=== PATIENT | female | born 1970 | race Caucasian/White ===

== ENCOUNTER 2022-10-12 08:13 | Outpatient (CLI) | payer OTHER | END 2022-10-12 08:14 | disposition home or self-care (01) | LOC: TBSIIMAG 08:13 | PROVIDERS: ATTEND Surgery | DX: M50.122 Cervical disc disorder at C5-C6 level with radiculopathy (principal); M50.022 Cervical disc disorder at C5-C6 level with myelopathy | CPT/HCPCS: 72141 ==

== ENCOUNTER 2022-12-08 05:44 | Observation (INO) | payer OTHER ==
[2022-12-08] MEDS ORDERED: Thrombin 5000 UNITS/5 ML VIAL ONE (06:14)
[2022-12-08] MEDS ORDERED: Fentanyl 250 MCG/5 ML VIAL ONE ×2 (06:44→10:21)
[2022-12-08] MEDS ORDERED: Sodium Chloride 0.9% 100 ML ONE (06:48)
[2022-12-08] MEDS ORDERED: CEFAZOLIN 2 GM VIAL ONE (06:48)
[2022-12-08] MEDS ORDERED: Midazolam HCl 2 mg/2 ml Vial ONE ×2 (06:59→11:19)
[2022-12-08] MEDS ORDERED: Ondansetron PF 4 MG/2 ML Vial ONE (07:07)
[2022-12-08] MEDS ORDERED: Dexamethasone 20 MG/5 ML VIAL ONE (07:07)
[2022-12-08] MEDS ORDERED: PROPOFOL 200 MG/20 ML VIAL ONE (07:07)
[2022-12-08] MEDS ORDERED: NEOSTIGMINE 3 MG/3 ML SYR 3 MG/3 ML SYRINGE ONE (07:07)
[2022-12-08] MEDS ORDERED: Rocuronium Bromide 10 MG/ML (10ML VIAL) ONE (07:07)
[2022-12-08] MEDS ORDERED: Lidocaine 1% PF 5 ML VIAL ONE (07:07)
[2022-12-08] MEDS ORDERED: Glycopyrrolate 0.2 MG/ML 5 ML SYRINGE ONE (07:07)
[2022-12-08] MEDS ORDERED: ePHEDrine 50 MG/ML VIAL ONE (07:07)
[2022-12-08] MEDS ORDERED: PHENYLEPHRINE-NS 100 MCG/ML 10 ML SYRINGE ONE (07:07)
[2022-12-08 07:24] LABS: SARS-CoV-2 NAA Rapid Test Not Detected (NotDetected)
[2022-12-08] MEDS ORDERED: diphenhydrAMINE 25 MG CAP PO PRN (09:05)
[2022-12-08] MEDS ORDERED: Ondansetron PF 4 MG/2 ML Vial IVP PRN (09:05)
[2022-12-08] MEDS ORDERED: traMADol HCl 50 MG TAB PO PRN ×2 (09:05)
[2022-12-08] MEDS ORDERED: tiZANidine HCl 4 MG TAB PO PRN (09:09)
[2022-12-08] MEDS ORDERED: HYDROmorphone 0.5 MG/0.5 ML SYRINGE ONE ×4 (09:10→09:48)
[2022-12-08] MEDS ORDERED: HYDROcodone/Acetaminophen 7.5/325 mg Tablet PO PRN (09:12)
[2022-12-08] MEDS ORDERED: Promethazine HCl 25 MG/ML VIAL IM PRN (09:18)
[2022-12-08] MEDS ORDERED: Ondansetron HCl/PF 4 MG/2 ML Vial IVP PRN (09:18)
[2022-12-08] MEDS ORDERED: Labetalol HCl 100 MG/20 ML VIAL SLOW IVP PRN (09:18)
[2022-12-08] MEDS ORDERED: HYDROmorphone 2 MG/ML VIAL SLOW IVP PRN (09:18)
[2022-12-08] MEDS ORDERED: Labetalol HCl 100 MG/20 ML VIAL ONE (09:45)
[2022-12-08] MEDS ORDERED: Bupivacaine PF 0.5% 30 ML VIAL ONE (11:19)
[2022-12-08] MEDS ORDERED: Fentanyl 100 MCG/2 ML VIAL ONE (11:19)
[2022-12-08] MEDS ORDERED: Promethazine HCl 25 MG/ML VIAL ONE (12:18)
[2022-12-08] MEDS: Sodium Chloride 0.9% 1,000 ML IV SCH ×2 (12:43→21:10)
[2022-12-08 12:45] VITALS: BMI 21.2
[2022-12-08] MEDS: Morphine 2 MG/ML VIAL SLOW IVP PRN ×5 (13:21→22:09)
[2022-12-08] MEDS: CEFAZOLIN 2 GM in Sodium Chloride 0.9% 100 ML IVPB SCH ×2 (13:21→19:58)
[2022-12-08] MEDS: Gabapentin 100 MG CAP PO PRN ×2 (13:22→19:57)
[2022-12-08] MEDS ORDERED: Diazepam 5 MG TAB PO PRN (16:20)
[2022-12-09] MEDS: Morphine 2 MG/ML VIAL SLOW IVP PRN (00:15)
[2022-12-09] MEDS: Ketorolac Tromethamine 30 MG/ML VIAL IVP PRN ×2 (03:23→09:27)
[2022-12-09] MEDS: CEFAZOLIN 2 GM in Sodium Chloride 0.9% 100 ML IVPB SCH (05:54)
[2022-12-09 12:05] VITALS: BP 165/76; TEMP 98.1
[2022-12-09] MEDS: Sodium Chloride 0.9% 1,000 ML IV SCH (14:10)
== END 2022-12-09 14:16 | disposition home or self-care (01) ==
LOC: SDC 05:44 → SURG B 09:10
PROVIDERS: ADMIT Surgery; ATTEND Surgery
PROC: 0RG10A0 Fusion of Cervical Vertebral Joint with Interbody Fusion Device, Anterior Approach, Anterior Column, Open Approach (ICD-10-PCS; principal; 2022-12-08)
DX: M50.123 Cervical disc disorder at C6-C7 level with radiculopathy (principal); Z88.6 Allergy status to analgesic agent; Z20.822 Contact with and (suspected) exposure to COVID-19
CPT/HCPCS: 96365; 96366; 96375; 96376; C1713; G0378; J1100; J1170; J1885; J2250; J2272; J2405; J2550; J2704; J3010; J3490; S0020; U0002

== ENCOUNTER 2023-03-06 14:10 | Outpatient (CLI) | payer OTHER ==
[2022-12-05 12:04] LABS: Anion Gap 14 mmol/L (10-20); BUN (Urea Nitrogen) 13 mg/dL (9.8-20.1); Calc. Creatinine Clearance 0 mL/min (70-130); Calcium 9.2 mg/dL (7.8-10.44); Carbon Dioxide 27 mmol/L (22-29); Chloride 102 mmol/L (98-107); Estimated GFR 90; Glucose 89 mg/dL (70-105); Potassium 3.7 mmol/L (3.5-5.1); Sodium 139 mmol/L (136-145)
[2022-12-05 12:12] LABS: Hemoglobin 13.2 g/dL (12.0-15.5); Mean Corpuscular HGB CONC 32.9 g/dL (32.0-36.0); Mean Corpuscular Volume 91.1 fl (81.6-98.3); Mean Platelet Volume 10.3 fl (7.4-10.4); Platelet Count 355 10x3/uL (150-450); RBC Distribution Width 13.9 % (11.5-14.5); White Blood Cell (WBC) Count 6.6 10x3/uL (3.5-10.5)
[2022-12-05 12:14] LABS: INR-International Normal Ratio 0.9; PTT 24.8 sec (22.0-33.0)
[2023-03-06 15:26] LABS: PTT 25.9 sec (22.0-33.0); Prothrombin Time 10.3 sec (9.5-12.1)
[2023-03-06 15:30] LABS: Hemoglobin 12.5 g/dL (12.0-15.5); Mean Corpuscular HGB CONC 32.4 g/dL (32.0-36.0); Mean Corpuscular Hemoglobin 29.2 pg (27.0-33.0); Mean Corpuscular Volume 90.2 fl (81.6-98.3); Mean Platelet Volume 9.8 fl (7.4-10.4); Platelet Count 367 10x3/uL (150-450); RBC Distribution Width 15.9 % (11.5-14.5); Red Blood Cell (RBC) Count 4.28 10x6/uL (3.90-5.03); White Blood Cell (WBC) Count 7.5 10x3/uL (3.5-10.5)
[2023-03-06 15:45] LABS: Anion Gap 14 mmol/L (10-20); BUN (Urea Nitrogen) 14 mg/dL (9.8-20.1); Calc. Creatinine Clearance 0 mL/min (70-130); Calcium 9.3 mg/dL (7.8-10.44); Carbon Dioxide 26 mmol/L (22-29); Chloride 102 mmol/L (98-107); Estimated GFR 82; Glucose 92 mg/dL (70-105); Potassium 4.2 mmol/L (3.5-5.1); Sodium 138 mmol/L (136-145)
== END 2023-03-06 14:11 | disposition home or self-care (01) ==
LOC: LABBT 14:10
PROVIDERS: ATTEND Surgery
DX: Z01.818 Encounter for other preprocedural examination (principal); M50.122 Cervical disc disorder at C5-C6 level with radiculopathy; M48.02 Spinal stenosis, cervical region
CPT/HCPCS: 80048; 85027; 85610; 85730; 93005; 93010

== ENCOUNTER 2023-03-09 08:27 | Observation (INO) | payer OTHER ==
[2023-03-06 14:56] VITALS: BMI 21.6
[2023-03-09] MEDS ORDERED: Thrombin 5000 UNITS/5 ML VIAL ONE (10:11)
[2023-03-09] MEDS ORDERED: Vancomycin 1 GM VIAL ONE (10:11)
[2023-03-09] MEDS ORDERED: CEFAZOLIN 2 GM VIAL ONE (10:23)
[2023-03-09] MEDS ORDERED: Sodium Chloride 0.9% 100 ML ONE (10:23)
[2023-03-09] MEDS ORDERED: Midazolam HCl 2 mg/2 ml Vial ONE ×2 (10:28→10:33)
[2023-03-09] MEDS ORDERED: HYDROmorphone 0.5 MG/0.5 ML SYRINGE ONE ×3 (10:33→13:36)
[2023-03-09] MEDS ORDERED: fentaNYL PF 100 MCG/2 ML SYRINGE ONE (10:33)
[2023-03-09] MEDS ORDERED: Lidocaine 1% PF 5 ML VIAL ONE (10:42)
[2023-03-09] MEDS ORDERED: Ondansetron PF 4 MG/2 ML Vial ONE (10:42)
[2023-03-09] MEDS ORDERED: Rocuronium Bromide 10 MG/ML (10ML VIAL) ONE (10:42)
[2023-03-09] MEDS ORDERED: Dexamethasone 20 MG/5 ML VIAL ONE (10:42)
[2023-03-09] MEDS ORDERED: PROPOFOL 200 MG/20 ML VIAL ONE (10:42)
[2023-03-09] MEDS ORDERED: PHENYLEPHRINE-NS 100 MCG/ML 10 ML SYRINGE ONE (10:42)
[2023-03-09] MEDS ORDERED: HYDROmorphone 2 MG/ML VIAL SLOW IVP PRN (11:10)
[2023-03-09] MEDS ORDERED: Meperidine HCl/PF 25 MG/ML VIAL SLOW IVP PRN (11:10)
[2023-03-09] MEDS ORDERED: Ondansetron HCl/PF 4 MG/2 ML Vial IVP PRN (11:10)
[2023-03-09] MEDS ORDERED: Promethazine HCl 25 MG/ML VIAL IM PRN (11:10)
[2023-03-09] MEDS ORDERED: Phenylephrine 10 MG/ML VIAL ONE (11:37)
[2023-03-09] MEDS ORDERED: Ondansetron PF 4 MG/2 ML Vial IVP PRN (12:51)
[2023-03-09] MEDS ORDERED: diphenhydrAMINE 25 MG CAP PO PRN (12:51)
[2023-03-09] MEDS ORDERED: traMADol HCl 50 MG TAB PO PRN ×2 (12:51)
[2023-03-09] MEDS ORDERED: Diazepam 5 MG TAB PO PRN (12:54)
[2023-03-09] MEDS ORDERED: oxyCODONE 5 MG TAB PO PRN (12:54)
[2023-03-09] MEDS ORDERED: fentaNYL 50 mcg/mL 1 mL Vial ONE ×3 (14:01→15:20)
[2023-03-09] MEDS ORDERED: Promethazine HCl 25 MG/ML VIAL ONE (14:45)
[2023-03-09] MEDS: Morphine 2 MG/ML VIAL SLOW IVP PRN ×2 (16:07→21:19)
[2023-03-09] MEDS: Sodium Chloride 0.9% 1,000 ML IV SCH (16:07)
[2023-03-09] MEDS: CEFAZOLIN 2 GM in Sodium Chloride 0.9% 100 ML IVPB SCH (17:38)
[2023-03-09] MEDS: oxyCODONE 5 MG TAB PO PRN (17:46)
[2023-03-09] MEDS: tiZANidine HCl 4 MG TAB PO PRN (21:19)
[2023-03-10] MEDS: oxyCODONE 5 MG TAB PO PRN ×3 (00:30→12:51)
[2023-03-10] MEDS: CEFAZOLIN 2 GM in Sodium Chloride 0.9% 100 ML IVPB SCH (01:47)
[2023-03-10] MEDS: Sodium Chloride 0.9% 1,000 ML IV SCH (01:49)
[2023-03-10] MEDS: tiZANidine HCl 4 MG TAB PO PRN ×2 (05:46→12:55)
[2023-03-10 15:58] VITALS: BP 121/78; TEMP 98.3
== END 2023-03-10 14:30 | disposition home or self-care (01) ==
LOC: SDC 08:27 → SJJU 15:55
PROVIDERS: ADMIT Surgery; ATTEND Surgery
PROC: 01NB0ZZ Release Lumbar Nerve, Open Approach (ICD-10-PCS; principal; 2023-03-09)
PROC: 01NR0ZZ Release Sacral Nerve, Open Approach (ICD-10-PCS; 2023-03-09)
PROC: 0SB40ZZ Excision of Lumbosacral Disc, Open Approach (ICD-10-PCS; 2023-03-09)
DX: M48.062 Spinal stenosis, lumbar region with neurogenic claudication (principal); M51.16 Intervertebral disc disorders with radiculopathy, lumbar region; Z88.6 Allergy status to analgesic agent; Z88.7 Allergy status to serum and vaccine; Z90.5 Acquired absence of kidney; Z98.1 Arthrodesis status
CPT/HCPCS: J1100; J1170; J2250; J2272; J2370; J2405; J2550; J2704; J3010; J3370; J3490; J7050

== ENCOUNTER 2023-07-11 12:55 | Outpatient (CLI) | payer OTHER | END 2023-07-11 12:56 | disposition home or self-care (01) | LOC: SCSRAD 12:55 | PROVIDERS: ATTEND Surgery | DX: M25.551 Pain in right hip (principal); M25.552 Pain in left hip | CPT/HCPCS: 73522 ==